=== PATIENT | female | born 1950 | race Caucasian/White ===

== ENCOUNTER 2018-04-02 20:45 | Emergency (ER) | payer MEDICARE, BC ==
[~2018-04-02] VITALS: Ht 167.6 cm; Wt 68.0 kg
[2018-04-02 20:53] VITALS: BP 132/93
--- NOTE | 2018-04-02 21:50 | NUR ---
PT IS UNABLE TO GIVE A URINE SAMPLE.
--- NOTE | 2018-04-02 21:50 | NUR ---
PT WOULD LIKE TO LEAVE. JEN ABREU.
== END 2018-04-02 22:04 | disposition home or self-care (01) ==
LOC: ER 20:48
DX: R31.9 Hematuria, unspecified (principal); Z87.440 Personal history of urinary (tract) infections; Z98.890 Other specified postprocedural states
CPT/HCPCS: A4606; Z7610

== ENCOUNTER 2021-05-23 11:15 | Emergency (ER) | payer MEDICARE, BC ==
[~2021-05-23] VITALS: Ht 165.1 cm; Wt 65.8 kg
--- NOTE | 2021-05-23 12:14 | NUR ---
THE PATIENT BIB SISTER FOR C/O HEADACHE, SORE NECK X 1 WEEK. PER PT, PMD REQUESTING CT SCAN. TAKING TYLENOL/MOTRIN ON ROUTINE FOR PAIN MANAGEMENT. THE PATIENT DENIES PAIN AT THIS TIME. IN ROOM AIR AND DENIES SOB. RESPIRATION REGULAR AND UNLABORED. ATTACHED TO THE MONITOR. WILL CONTINUE TO MONITOR THE PATIENT.
[2021-05-23 12:37] LABS: BASOPHILS % (AUTO) 0.6 % (0.0-2.0); EOSINOPHILS % (AUTO) 0.9 % (0.0-6.0); HEMATOCRIT 37 % (33-45); HEMOGLOBIN 11.6 g/dL (11.5-14.8); LYMPHOCYTES % (AUTO) 16.5 % (20.0-44.0); MEAN CORPUSCULAR HGB CONC 32 g/dl (31.0-36.0); MEAN CORPUSCULAR VOLUME 65 fL (82-100); MONOCYTES # (AUTO) 0.3 K/uL (0.1-1.30); NEUTROPHILS # (AUTO) 4.8 K/uL (1.8-8.9); PLATELET COUNT (AUTO) 170 K/uL (150-450); RED BLOOD CELL COUNT(AUTO) 5.68 MIL/uL (4.0-5.2); WHITE BLOOD COUNT (AUTO) 6.2 K/uL (4.3-11.0)
[2021-05-23 12:42] LABS: CALCIUM, SERUM 8.8 mg/dL (8.5-10.1); CARBON DIOXIDE 29 mmol/L (21-32); CHLORIDE 104 mmol/L (98-107); CREATININE 0.7 mg/dL (0.6-1.3); GLUCOSE 107 mg/dL (74-106); POTASSIUM 4.1 mmol/L (3.5-5.1); SODIUM SERUM 143 mmol/L (136-145); UREA NITROGEN, BLOOD 13 mg/dL (7-18)
[2021-05-23 12:49] LABS: ALANINE AMINOTRANSFERASE 19 U/L (12-78); ALBUMIN 4.1 g/dL (3.4-5.0); ALKALINE PHOSPHATASE 87 U/L (46-116); ASPARTATE AMINOTRANSFERASE 13 U/L (15-37); BILIRUBIN,DIRECT 0.1 mg/dL (0.0-0.2); BILIRUBIN,TOTAL 0.4 mg/dL (0.2-1.0); TOTAL PROTEIN, SERUM 7.2 g/dL (6.4-8.2)
[2021-05-23] MEDS ORDERED: IOHEXOL-350 100 ML VIAL IV ONE (13:02)
[2021-05-23] MEDS ORDERED: IV NS 0.9% 250 ML IV ONE (13:03)
[2021-05-23 14:21] VITALS: BP 132/75
--- NOTE | 2021-05-23 14:21 | NUR ---
Patient discharged to home in stable condition. Written and verbal after care instructions given. Patient verbalizes understanding of instruction.
== END 2021-05-23 14:22 | disposition home or self-care (01) ==
LOC: ER 11:15
DX: H53.2 Diplopia (principal); R51.9 Headache, unspecified; Z98.890 Other specified postprocedural states
CPT/HCPCS: 36415; 70450; 70496; 70498; 80048; 80076; 84484; 85025; 93005; 99285; J7050; Q9967